=== PATIENT | male | born 1950 | race Caucasian/White ===

== ENCOUNTER 2018-06-09 15:42 | Outpatient (CLI) | payer MEDICARE, BC, SELFPAY ==
[2018-06-09 16:17] LABS: HCT 42.6 % (40.0-50.0); HGB 15.2 g/dL (13.5-17.5); Mean Corp. HGB Concentration 35.7 g/dL (32.0-36.0); Mean Corpuscular Hemoglobin 32.7 pg (27.0-33.0); Mean Corpuscular Volume 91.6 fL (80-95); Mean Platelet Volume 10.7 fL (8.0-11.0); Platelet Count 201 x1000/uL (130-400); RBC 4.65 m/cumm (4.50-6.00); RBC Distribution Width 13.9 % (11.8-14.1); White Blood Cell Count 6.19 k/cumm (4.4-10.8)
[2018-06-09 17:35] LABS: TSH (W/Ref FT4) 2.88 uIU/mL (0.358-3.74)
== END 2018-06-09 15:43 ==
PROVIDERS: PCP Internal Medicine; Visit Provider Internal Medicine
DX: R06.02 Shortness of breath (principal); R53.83 Other fatigue; I10 Essential (primary) hypertension
CPT/HCPCS: 36415; 85027; 84443

== ENCOUNTER 2018-06-27 16:04 | Outpatient (CLI) | payer MEDICARE, BC, SELFPAY ==
[2018-06-27 18:41] LABS: Anion Gap 8.6 mmol/L (3-11); BUN 18 mg/dL (7-18); CO2 27.4 mmol/L (21.0-32.0); CREATININE 1.13 mg/dL (0.70-1.30); Calcium 9.1 mg/dL (8.5-10.1); Chloride 103 mmol/L (98-107); Glucose 82 mg/dL (70-100); Potassium 4.1 mmol/L (3.5-5.1); Sodium 139 mmol/L (136-145)
== END 2018-06-27 16:24 ==
PROVIDERS: PCP Internal Medicine; Visit Provider Internal Medicine
DX: I10 Essential (primary) hypertension (principal)
CPT/HCPCS: 36415; 80048

== ENCOUNTER 2019-09-25 10:32 | Outpatient (REF) | payer MEDICARE, BC, SELFPAY ==
[2019-09-25 21:55] LABS: HCT 43.9 % (40.0-50.0); HGB 14.8 g/dL (13.5-17.5); Mean Corp. HGB Concentration 33.7 g/dL (32.0-36.0); Mean Platelet Volume 10.6 fL (8.0-11.0); Platelet Count 232 x1000/uL (130-400); RBC 4.93 m/cumm (4.50-6.00); RBC Distribution Width 13.4 % (11.8-14.1); White Blood Cell Count 4.49 k/cumm (4.4-10.8)
[2019-09-25 22:50] LABS: BUN 21 mg/dL (7-18); CREATININE 1.22 mg/dL (0.70-1.30); Calcium 9.3 mg/dL (8.5-10.1); Chloride 106 mmol/L (98-107); Estimated GFR 59.07 (mL/min/1.73m2); Glucose 100 mg/dL (74-106); Potassium 4.2 mmol/L (3.5-5.1); Sodium 144 mmol/L (136-145); Vitamin B12 552 pg/mL (193-986)
[2019-09-25 23:08] LABS: FREE T4 1.07 ng/dL (0.76-1.46)
== END 2019-09-25 10:52 ==
LOC: NCHCN 10:32
PROVIDERS: PCP Internal Medicine; Visit Provider Internal Medicine
DX: I10 Essential (primary) hypertension (principal); F41.8 Other specified anxiety disorders; E03.9 Hypothyroidism, unspecified; R41.3 Other amnesia; K21.9 Gastro-esophageal reflux disease without esophagitis; R06.02 Shortness of breath
CPT/HCPCS: 80048; 85027; 82607; 84439; 84443

== ENCOUNTER 2020-09-01 05:55 | Outpatient (REF) | payer MEDICARE, BC, SELFPAY ==
[2020-09-04 12:16] LABS: Patient Race White; SARS-CoV-2 RNA Undetected (Undetected); SARS-CoV-2 Specimen Source Nasal
== END 2020-09-01 06:15 ==
LOC: NCHCN 05:55
PROVIDERS: PCP Internal Medicine; Visit Provider Nurse Practitioner Family
DX: Z11.59 Encounter for screening for other viral diseases (principal)
CPT/HCPCS: U0003

== ENCOUNTER 2020-09-22 19:21 | Outpatient (REF) | payer MEDICARE, BC, SELFPAY ==
[2020-09-22 21:23] LABS: HCT 41.5 % (40.0-50.0); HGB 13.2 g/dL (13.5-17.5); MCH 25.9 pg (27.0-33.0); MCHC 31.8 % (32.0-36.0); MCV 81.4 fL (80-95); MPV 10.5 fL (8.0-11.0); Platelet Count 282 10^3/uL (130-400); RDW 15.1 % (11.8-14.1); RDW-SD 44.5 fL; WBC 4.96 10^3/uL (4.4-10.8)
[2020-09-22 22:02] LABS: Anion Gap 10.5 mmol/L (3-11); BUN 27 mg/dL (7-18); CO2 25.5 mmol/L (21.0-32.0); CREATININE 1.43 mg/dL (0.70-1.30); Calcium 9.5 mg/dL (8.5-10.1); Chloride 104 mmol/L (98-107); Estimated GFR 49.03 (mL/min/1.73m2); Glucose 113 mg/dL (74-106); NT-proBNP 32 pg/mL (<300); Potassium 4.1 mmol/L (3.5-5.1); Sodium 140 mmol/L (136-145)
[2020-09-23 09:42] LABS: Iron 43 ug/dL (65-175); Total Iron Binding Capacity 337 ug/dL (250-450); Transferrin Sat 13 % (20-55)
== END 2020-09-22 19:41 ==
LOC: NCHCN 19:21
PROVIDERS: PCP Internal Medicine; Visit Provider Internal Medicine
DX: D50.9 Iron deficiency anemia, unspecified (principal); R06.09 Other forms of dyspnea; I10 Essential (primary) hypertension
CPT/HCPCS: 80048; 85027; 83540; 83550; 83880

== ENCOUNTER → 2020-12-04 08:33 | Outpatient (BNVA) | payer MEDICARE, BC, SELFPAY | PROVIDERS: PCP Internal Medicine; Referring Provider Internal Medicine; Visit Provider Physical Therapy Assistant | DX: Z12.11 Encounter for screening for malignant neoplasm of colon (principal); Z86.010 Personal history of colon polyps ==

== ENCOUNTER 2020-12-12 09:17 | Day surgery (SDC) | payer MEDICARE, BC, SELFPAY ==
[2020-12-12 09:39] VITALS: BP 125/88; PULSE 96; RESP 18; TEMP 36.1; O2SAT 93
[2020-12-12] MEDS: Lactated Ringers 1,000 ML 80 ML IV (09:59)
--- NOTE | 2020-12-12 10:30 | BOWEL_PTH ---
PATIENT: Scout Donohue LOC: [facility] U#:[id number] AGE/SX: 70/M ROOM: RE12/12/[address]: Niharika Alexander : 1950 BED: DIS: 12/12/2020 SPEC #: [id number] RECD: 12/12/20 12:51 STATUS: WILVER RE #: [id number] HUNTER: 12/12/20 10:[address]: Niharika Alexander DEPT: Surgical Specimen RECD BY: Rosemarie Morfin ENTERED: 12/12/20 12:53 SP TYPE: Bowel OTHR DR: Nic Hutton Tissues: 1 - BIOPSY BOWEL 2 - BIOPSY BOWEL 3 - BIOPSY BOWEL 4 - BIOPSY BOWEL 5 - BIOPSY BOWEL Procedures: GROSS AND MICRO LEVEL 4 Comments: [id number]
[2020-12-12] MEDS: AMPICILLIN SODIUM 2 GM in Normal Saline 100 ML IVPB (10:33)
--- NOTE | 2020-12-12 11:38 | W.COLOREPORT ---
Date of service: 12/12/20 Time of Service: 11:38 Colonoscopy Report Date of procedure: 12/12/20 Pre-op diagnosis general: A. polyps Post-op diagnosis procedure note: other (A. polyps and diverticula) Surgeon: Niharika Alexander Anesthesia proc note operative: GETA Estimated blood loss (mL): 3 Pathology: other Complications: None Disposition: PACU Prep: Miralax/Dulcolax Retraction Time: 45 mins Procedure Description: After informed consent was obtained the patient was taken to the procedure room and placed in a left decubitous position. Monitors were applied and a time out was done. The patients name, date of , procedure, allergies to medications and metal in their body was reviewed. The patient was then sedated. Once sedated and comfortable a rectal exam was done. External exam was normal. Internal exam revealed a normal sphincter tone and no palpable masses. The scope was then introduced and retrofelexed. No internal hemorrhoids were identified. The scope was then advanced to the w/out cecum difficulty. Patient's colon was very tortuous. We had to reposition him on his back. Abdominal pressure was used. The TI and appendiceal orifice were identified. The prep was adequate. The scope was then slowly retracted over 45 minutes back into the rectum. Patient had 7 polyps removed. 3 of these were 1 cm pedunculated polyps. They were not ulcerated. These were removed with hot polypectomy snare. Theere were at 60,50,& 30cm. He had 4 other polyps that were removed with a hot polypectomy forcep. 1 of these was 0.75 cm excised at 30 cm. The rest were less than 5 mm in size. These were are flat and are removed with a hot polypectomy forcep. 1 in the rectum. 1 at 30 cm. One at 70 cm. And 1 at 60 cm. All specimens are retrieved and no bleeding is noted. He does have moderate diverticular disease confined to the sigmoid colon. There are no signs of active bleeding or infection. All specimens are retrieved and no bleeding is noted. He should have a repeat colonoscopy in 3 years time, IF he is healthy still for anesthesia. The scope was removed. The patient tolerated procedure well without any complications. The patient was woken up and taken back to Same day surgery in stable condition. 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 The patient tolerated the procedure well and there were no immediate complications. Follow up: The patient should follow up in 3 years unless they develop changes in bowel habits or other new gastrointestinal complaints.
--- NOTE | 2020-12-12 11:39 | W.PM.DSUDISC ---
Discharge Plan Disposition Patient Disposition: HOME Condition: Good Discharge Details Reason For Visit: colon Attending Provider: Niharika Alexander Primary Care Provider: Nic Hutton Home Meds and New Rx's Prescriptions: Continued ferrous sulfate 325 mg (65 mg iron) tablet 325 mg PO DAILY RF: 0 bisacodyl [Dulcolax (bisacodyl)] 5 mg tablet,delayed release (DR/EC) 5 mg PO ONCE Qty: 4 RF: 0 losartan 50 MG tablet 50 mg PO DAILY RF: 0 omeprazole 20 MG capsule,delayed release(DR/EC) 20 mg PO DAILY RF: 0 hydrochlorothiazide 25 mg tablet 25 mg PO DAILY RF: 0 acetaminophen [Tylenol Extra Strength] 500 mg tablet 500 mg PO Q6H PRNRF: 0 Discontinued polyethylene glycol 3350 17 gram/dose powder 238 g PO ONCE Qty: 238 RF: 0 aspirin 81 mg tablet,delayed release (DR/EC) 81 mg PO DAILY RF: 0 Discharge Instructions Additional Instructions: Findings: x7 polyps removed. diverticula Follow up: After we will send a letter in 3 weeks with the results of pathology. Repeat scope in 3 years time-due to the size and number of polyps, provided you are still healthy for anesthesia. -No aspirin or NSAIDs for 14 days. After 14 days resume aspirin. -No lifting over 20 pounds or strenuous activity x72 hours. Please call if you develop: fevers >101.5 Nausea or Vomiting Abdominal pain that is not transient DAY SURGERY UNIT POST COLONOSCOPY INSTRUCTIONS 1. Because there will be medication in your system for the next 24 hours, you may feel a little sleepy. Your coordination will be affected. Therefore: a. Do not drive or operate dangerous equipment for 24 hours. b. Do not drink alcohol beverages for 24 hours (not even beer). c. Plan to go home and rest for the day. 2. Generally there are no restrictions on your activity after a day or so has gone by, but you may feel a bit fatigued for a few days. 3 After you arrive home you may have a light meal and return to a normal diet as you can tolerate it without feeling sick to your stomach. 4. After surgery, you may feel pain or discomfort. This should be only transient, but if it persists please contact your doctor. 5. If there are any questions regarding the findings of your procedure, please feel free to contact your doctor. 6. If you are unable to contact your doctor with a problem, contact the hospital at [phone]. 7. Continue all your regular medications unless directed otherwise. I understand the above instructions and have no questions. Signature of Patient or Responsible Adult Escort Date/Time Name of Responsible Adult Escort Signature of Nurse Date/Time DIVERTICULAR DISEASE OVERVIEW ? A diverticulum is a pouch-like structure that can form through points of weakness in the muscular wall of the colon (ie, at points where blood vessels pass through the wall). Diverticulosis affects men and women equally. The risk of diverticular disease increases with age. It occurs throughout the world but is seen more commonly in developed countries. WHAT IS DIVERTICULAR DISEASE? Diverticulosis ? Diverticulosis merely describes the presence of diverticula. Diverticulosis is often found during a test done for other reasons, such as flexible sigmoidoscopy, colonoscopy, or barium enema. Most people with diverticulosis have no symptoms and will remain symptom free for the rest of their lives. A person with diverticulosis may have diverticulitis, or diverticular bleeding. Diverticulitis ? Inflammation of a diverticulum (diverticulitis) occurs when there is thinning and breakdown of the diverticular wall. This may be caused by increased pressure within the colon or by hardened particles of stool, which can become lodged within the diverticulum. The symptoms of diverticulitis depend upon the degree of inflammation present. The most common symptom is pain in the left lower abdomen. Other symptoms can include nausea and vomiting, constipation, diarrhea, and urinary symptoms such as pain or burning when urinating or the frequent need to urinate. Diverticulitis is divided into simple and complicated forms. ?Simple diverticulitis, which accounts for 75 percent of cases, is not associated with complications and typically responds to medical treatment without surgery. ?Complicated diverticulitis occurs in 25 percent of cases and usually requires surgery. Complications associated with diverticulitis can include the following: ?Abscess ? a localized collection of pus ?Fistula ? an abnormal tract between two areas that are not normally connected (eg, bowel and bladder) ?Obstruction ? a blockage of the colon ?Peritonitis ? infection involving the space around the abdominal organ ?Sepsis ? overwhelming body-wide infection that can lead to failure of multiple organs Diverticular bleeding ? Diverticular bleeding occurs when a small artery located within a diverticulum is eroded and bleeds into the colon. Diverticular bleeding usually causes painless bleeding from the rectum. In approximately 50 percent of cases, the person will see maroon or bright red blood with bowel movements. Is bleeding with a bowel movement normal? ? It is not normal to see blood in a bowel movement; this can be a sign of several conditions, most of which are not serious (eg, hemorrhoids) but some of which are serious and require immediate treatment. Anyone who sees blood after a bowel movement should consult with their healthcare provider to determine if further testing or evaluation is needed. DIVERTICULOSIS AND DIVERTICULITIS DIAGNOSIS ? Diverticulosis is often found during tests performed for other reasons. ?Barium enema ? This is an x-ray study that uses barium in an enema to view the outline of the lower intestinal tract. This is an older test and has been largely replaced by computed tomography (CT) scan. ?Flexible sigmoidoscopy ? This is an examination of the inside of the sigmoid colon with a thin, flexible tube that contains a camera. ?Colonoscopy ? This is an examination of the inside of the entire colon. ?CT scan ? A CT scan is often used to diagnose diverticulitis and its complications. If diverticulitis (not just diverticulosis) is suspected, the above three tests should not be used because of the risk of perforation. TREATMENT Diverticulosis ? People with diverticulosis who do not have symptoms do not require treatment. However, most clinicians recommend increasing fiber in the diet, which can help to bulk the stools and possibly prevent the development of new diverticula, diverticulitis, or diverticular bleeding. Fiber is not proven to prevent these conditions in all patients but may help to control recurrent episodes in some. Increase fiber ? Fruits and vegetables are a good source of fiber. Fiber content of packaged foods can be calculated by reading the nutrition label. Seeds and nuts ? Patients with diverticular disease have historically been advised to avoid whole pieces of fiber (such as seeds, corn, and nuts) because of concern that these foods could cause an episode of diverticulitis. However, this belief is completely unproven. We do not suggest that patients with diverticulosis avoid seeds, corn, or nuts. Diverticulitis ? Treatment of diverticulitis depends upon how severe your symptoms are. Home treatment ? If you have mild symptoms of diverticulitis (mild abdominal pain, usually left lower abdomen), you can be treated at home with a clear liquid diet and oral antibiotics. However, if you develop one or more of the following signs or symptoms, you should seek immediate medical attention: ?Temperature >100.1?F (38?C) ?Worsening or severe abdominal pain ?An inability to tolerate fluids Hospital treatment ? If you have moderate to severe symptoms, you may be hospitalized for treatment. During this time, you are not allowed to eat or drink; antibiotics and fluids are given into a vein. If you develop an abscess of the colon, you may require drainage of the abscess (usually performed by placing a drainage tube across the abdominal wall) or by surgically opening the affected area. Surgery ? If you develop a generalized infection in the abdomen (peritonitis), you will usually require an emergency operation. A two-part operation may be necessary in some cases. ?The first operation involves removal of the diseased colon and creation of a colostomy. A colostomy is an opening between the colon and the skin, where a bag is attached to collect waste from the intestine. The lower end of the colon is temporarily sewed closed to allow it to heal. ?Approximately three to six months later, a second operation is performed to reconnect the two parts of the colon and close the opening in the skin. You are then able to empty your bowels through the rectum. Sometimes patients require up to a year to recover from the first operation, depending on how sick they were. In non-emergency situations, the diseased area of the colon can be removed and the two ends of the colon can be reconnected in one operation, without the need for a colostomy. Surgery versus medical therapy ? An operation to remove the diseased area of the colon may be necessary if you do not improve with medical therapy. After an episode of uncomplicated diverticulitis, elective surgery is generally not required as the risk of another attack or requiring emergency surgery is low. However, patients with persistent symptoms attributable to diverticulitis, a history of complicated diverticulitis, or a compromised immune system should be evaluated for possible surgery to prevent another attack. In such patients, another attack has been associated with a higher risk of complications or . Of course, the decision will also depend in part upon your other medical conditions and ability to undergo surgery. In many cases, an elective operation can be performed laparoscopically, using small incisions, rather than the typical vertical (up and down) abdominal incision. Laparoscopic surgery usually allows you to recover more quickly and shortens the hospital stay. After diverticulitis resolves ? After an episode of diverticulitis resolves, if you have not had a recent colonoscopy, the entire length of the colon should be evaluated to determine the extent of disease and to rule out the presence of abnormal lesions such as polyps or cancer. Recommended tests include colonoscopy, barium enema and sigmoidoscopy, or CT colonography. Diverticular bleeding ? Most cases of diverticular bleeding resolve on their own. However, some people will need further testing or treatment to stop bleeding, which may include a colonoscopy, angiography (a treatment that blocks off the bleeding artery), bleeding scan, or surgery. DIVERTICULAR DISEASE PROGNOSIS Diverticulosis ? Over time, diverticulosis may cause no problems or it may cause episodes of bleeding and/or diverticulitis. Approximately 15 to 25 percent of people with diverticulosis will develop diverticulitis, while 5 to 15 percent will develop diverticular bleeding. Diverticulitis ? Approximately 85 percent of people with uncomplicated diverticulitis will respond to medical treatment, while approximately 15 percent of patients will need an operation. After successful treatment for a first attack of diverticulitis, one-third of patients will remain asymptomatic, one-third will have episodic cramps without diverticulitis, and one-third will go on to have a second attack of diverticulitis. The prognosis tends to remain similar following a second attack of diverticulitis. Only 10 percent of people remain symptom-free after a second attack. Subsequent attacks tend to be of similar severity, not increasing in severity as previously believed. High Fiber Diet What is Dietary Fiber? All fiber comes from plants, bushes, jeannette or trees. Of course, the ones that we eat provide us with fruits, vegetables and grains. There are many different types of fiber but the three that are most important to the health of the body are: Insoluble Fiber This fiber does not dissolve in water, nor is it fermented by the bacteria residing in the colon. Rather, it retains water and in so doing, helps to promote a larger, bulkier and more regular bowel activity. This, in turn, may be important in preventing disorder such as diverticulosis and hemorrhoids, and in sweeping out certain toxins and cancer causing carcinogens. Sources of insoluble fiber are: ? whole grain wheat and other whole grains ? corn bran, including popcorn, unflavored and unsweetened ? nuts and seeds ? potatoes and the skins from most fruits from trees such as apples, bananas and avocados ? many green vegetables such as green beans, zucchini, celery and cauliflower ? some fruit plants such as tomatoes and kiwi Soluble Fiber These fibers are fermented or used by the colon bacteria as a food source or nourishment. When these good bacteria grow and thrive, many health benefits occur in both the colon and the body. Soluble fiber is present in some degree in most edible plant foods, but the ones with the most soluble fiber include: ? legumes such as peas and most beans, including soybeans ? oats, rye and barley ? many fruits such as berries, plums, apples bananas and pears ? certain vegetables such as broccoli and carrots ? most root vegetables ? psyllium husk supplement products Prebiotic Soluble Fiber These are relatively newly discovered soluble plant fibers. The technical name for this fiber is inulin or fructan. When these soluble fibers are fermented by the good colon bacteria, some further significant health benefits have been shown to occur by research in many medical centers. These soluble prebiotic fibers occur in significant amounts in: ? asparagus ? yams ? onions ? garlic ? bananas ? leeks ? agave ? chicory and other root vegetables such as [place] artichokes ? wheat, rye and barley (smaller amounts) Benefits of a High Fiber Diet The health benefits of a high fiber diet, consumed on a regular basis and reaching recommended amounts (below), are now fairly well-defined. There are some additional benefits in the early research stage with the prebiotic soluble fibers. What is now known regarding a high fiber diet include: Bowel Regularity A high fiber diet promotes regularity with a softer, bulkier and regular stool pattern. This decreases the chance of hemorrhoids, diverticulosis and perhaps colon cancer. Cholesterol and Reduced Triglycerides The soluble fibers are the ones that will reduce cholesterol levels when used on a regular basis. Psyllium husk and prebiotic soluble fiber will also reduce cholesterol. They may also reduce the incidence of coronary heart disease. Oats, flax seeds and legumes or beans are the recommended fibers. Colon Polyps and Cancer It is still not certain if a high fiber diet helps prevent colon cancer. Considerable research suggests that this may occur. Certainly it makes sense to increase regularity and so speed the movement of cancer causing carcinogens through the bowel. In addition, reducing a heavy meat diet reduces the bile flow from the liver in a favorable way. This, too, reduces the amount of carcinogens that reach and are manufactured in the colon. Finally, a high fiber diet, including prebiotic soluble fiber, increases the integrity and health of the wall of the colon. The risk of cancer may be reduced. Colon Wall Integrity A high fiber diet changes the bacterial makeup of the colon toward a more favorable balance. For instance, it is known that those people with obesity, diabetes type 2 and inflammatory bowel disease have a predominance of bad bacteria in the colon. This, in turn, may render the bowel wall weak and allow bacteria and, indeed, even toxins to seep through. A high fiber diet with a modest reduction in animal and meat products may return the bacterial makeup to a more positive balance. This, in particular, has been seen when the soluble fiber prebiotics are added to the diet. Blood Sugar Soluble fiber such as in legumes (beans), oats and in prebiotic fibers slows the absorption of blood sugar and so helps regulate the sugar in the blood. Insoluble fiber on a regular basis is associated with reduced risk of type 2 diabetes. Weight Loss High fiber diets are more filling and give a sense of fullness sooner than an animal and meat based diet does. In addition, the soluble prebiotic fibers have been shown to turn off the hunger hormones produced in the wall of the gut and to increase the hormones that give a sense of fullness. Those hormones are made in the wall of the gut. New medical research has shown that the bacterial makeup in the colon in overweight people is abnormal to the extent that they manufacture and absorb almost twice the number of calories through the colon wall as do normals. Prebiotic fibers (below) will help change this hormonal balancein a favorable way. Bacteria and the Function of the Colon The colon finishes the digestive process. Hopefully, the waste products move through in a nice regular manner. Insoluble fibers help this process by retaining water and so producing a bulkier, softer stool, which is easy to pass. The additional role of the colon is to provide a home for an enormous number of micro-organisms, mostly bacteria. Recent research has shown that there are over 1,000 species of bacteria with a total bacterial count ten times the number of cells in the body. These bacteria play a major role in keeping the colon wall itself healthy. In addition, these good bacteria produce a very strong immune system for the body. They significantly increase calcium absorption and bone density. They provide other documented benefits. It is the soluble fibers in the diet that are so effective in stimulating the growth of good colon bacteria. How Much is Enough? The amount of fiber in food is measured in grams. National nutritional authorities recommend the following amounts of dietary fiber daily. Under Age 50 Over Age 50 Men 38 grams 30 grams Women 25 grams 21 grams For a week or so, it is best to tally the amount of fiber you are consuming. Boxed and packaged foods will have the amount of fiber per serving on the nutrition label. Which Fibers and Which Foods are Best? As noted, healthy fiber is only found in plants. The three major categories are whole grains, fruits and vegetables. Whole Grains Wheat, oats, barley, wild or brown rice, amaranth, buckwheat, bulgur, corn, millet, quinoa, rye, sorghum, teff and triticals. By far, wheat, oats and wild or brown rice are most common. Always buy whole grain products. White bread, baked goods and rolls almost always are made from wheat flour. Wheat flour is white because most of the fiber, vitamins and other nutrients have been removed. Try not buy enriched grains. What this means is that simple white flour has had vitamins added to it by the english language learner tutor. The word, enriched, implies a good and healthy product. On the contrary, enriched means that most of the fiber has been removed and a few vitamins added. Fruits Fruits come from trees such as apple and pear or from bushes or jeannette. You should eat a wide variety of fruits, preferably with every meal. In many cases, the skin of a fruit such as apple will contain much of the insoluble fiber while the pulp contains most of the soluble fiber. To the extent possible, buy organic fruits as these will have little or no pesticides. Always wash fruit. Vegetables Eat a wide variety of vegetables. They should be a mainstay of lunch and dinners. Frozen vegetables retain as much nutrition and fiber as fresh vegetables. As with fruit, try to buy organic to reduce any residual pesticide ingestion. Wash fresh vegetables thoroughly. Cruciferous vegetables such as broccoli, [place] sprouts and cauliflower contain certain chemicals such as sulforaphane. This substance has very strong anti-cancer properties and should be eaten frequently. Legumes, Beans, Peas and Soybeans These vegetables have plenty of soluble fiber and should be part of a varied vegetable intake. Beans, in particular, contain a certain type of fiber that may lead to harmless gas or bloating. Nuts and Seeds These are rich sources of fiber and are a good substitute for sweets such as candies and baked sweet goods. While nuts and seeds are rich in fiber, they also contain vegetable fat and so can and do add calories. Read the Labels As noted, fresh and frozen foods are usually better. They have good nutrition and few, if any, chemicals added to them. When buying packaged foods and, in particular grains, look for three things: ? The first word on the label should be whole, such as whole wheat or whole grain. ? Check out the calories and the amount of fiber in a serving. ? How many and what other additives or chemicals are added. Fewer is always better. Do you know what each additive does? Some are added not for the benefit of the ore bridge operator but rather for manufacturers. These could and do include sugar, artificial flavor, chemicals to prevent oxidation and spoilage, emulsifiers to blend the product. You have to be a railroad detective. Fiber Facts, Nuggets and Pearls ? For breakfast you can easily get the day started well by using a high fiber, whole grain cereal. Check the labels. Add fruit such as blueberries and bananas. If you are an egg eater, use whole wheat or grain toast. Adding wheat germ gives you a good fiber kick. ? Always use whole grain or wheat with rolls and sandwiches. Does your fast food store not have them? Perhaps you look elsewhere. Eating an occasional black [place] or veggie burger provides variety. ? Snacks should consist of fruit and/or nuts. While nuts are loaded with fiber, they are an energy rich food, meaning they have a lot of calories in a small packet. ? Fruit juices should contain pulp. Clear juices such as clear orange, pear or apple juice contain little fiber and have a lot of fructose. Prune juice is usually high in fiber. ? Homemade soups ? adding fresh or frozen vegetables to a chicken or vegetable stock is a good way to start homemade soup. ? Salads ? adding cooked and then chilled vegetables provide great flavoring to almost any salad. Remember, a hernandez salad has lots of cooked corn in it. Small slices of apples or oranges and nuts such as chopped walnuts or sliced almonds always adds taste, variety and fiber to almost any salad. ? Fruit ? Try to eat fruit of some type with almost every meal. ? Rethink how you place the various foods on your dinner plate. Reducing the portions of the meat or animal food portion to the side with equal or more portions of vegetables, legumes and fruits portion always allows for more fiber. There was never anything magic about making the meat or animal food portion the main part of the dinner plate. Eating from smaller plates can, over time, trick your mind and terminal make up operator habit of using a dinner plate. Again, there is nothing magic in an 11, 12, or 13 inch dinner plate. Fiber Supplements There are a variety of fiber supplements available on the food or pharmacy shelves. Psyllium This soluble plant fiber has been used in [place] for over 2,000 years. It is a soluble fiber with mucilage in it. This acts to retain a lot of water and also is fermented by colon bacteria. When 7 grams a day are used, it does lower cholesterol. Metamucil in various forms is psyllium. Methyl Cellulose All the cellulose products come from finely ground wood chips which are then treated in a variety of ways such as boiling in acids. Methyl cellulose is an insoluble fiber which does dissolve in water. It is also an emulsifier, meaning it blends oils and water. Citrucel is methyl cellulose (MC). MC may not be appropriate for Crohn?s disease or ulcerative colitis as several medical studies have shown that certain emulsifiers dissolve the mucous lining of the colon in animals prone to Crohn?s disease. This then allows bacteria to invade the underlying tissue. Inulin Inulin is a soluble prebiotic fiber found in many foods and which are fermented mostly in the left side of the colon. It is available in a supplement as generic inulin and in Fiber Choice. Oligofructose FOS These are also prebiotic fibers. They are fermented very quickly in the right side of the colon. Prebiotin This product is a combination of oligofructose, which feeds the bacteria in the right side of the colon and inulin, which does the same in the left side of the colon. There seems to be a benefit for this particular formula based on medical research. Prebiotic Soluble Fiber These may be the healthiest of all the soluble fibers. They grow in many plants and have had a great deal of research done on them in the last 10-15 years. These fibers are found in asparagus, yams and other root vegetables such as chicory, garlic, onion, leeks and in smaller amounts in wheat. This research has shown the following: ? Increase in good and decrease in bad colon bacteria ? Increase calcium absorption and enhanced bone mass ? Enhanced immune system ? Appetite and weight control by changing the hormone appetite signals to the brain ? May decrease colon cancer incidence ? Reduce or correct a leaky colon Eating a wide variety of plant food up to the recommended amount will likely give you enough prebiotic fiber. Supplements such as Prebiotin can be added to the diet. Short Chain Fatty Acids (SCFA) Some rather remarkable research findings have shown that one of the benefits of ingesting a lot of soluble fiber, in particular the prebiotic ones, results in larger amounts of SCFAs in the colon. These SCFAs are made by the good bacteria in the colon such as Bifidobacter and Lactobacillus. These small molecules have been shown to do the following: ? Enhance the health and integrity of the colon wall ? Provide nourishment for the cells that actually line the colon ? Increases the acidity of the colon which is a very real health benefit ? Stabilize blood sugar for diabetics ? Reduce blood cholesterol and triglyceride ? Significantly enhance immunity ? May be a benefit for Crohn?s disease and ulcerative colitis patients Fiber and Gas Everyone has intestinal gas and that is a good thing. It means that bacteria, hopefully the good ones, are thriving. The normal amount of flatus passed each day depends on sex and what is eaten. The normal number of flatus is 10-20 times a day. When the bacteria that make intestinal gases are growing, it also means that other good bacteria are using the same fibers to grow and produce multiple health benefits, including the production of healthy short-chain fatty acids. These substances are produced quietly in the colon and produce many health-related outcomes. Soluble fiber should always be used in a gradual manner. If too much is consumed at any one time, then excess, but harmless, intestinal gas can occur. People with irritable bowel syndrome are particularly prone to bloating and mild cramping. In this instance, soluble fiber in the diet or supplement should be used in small doses and increased gradually. Finally, prebiotic fibers tend to cause the production of short-chain fatty acids which acidify the colon. This, in turn, reduces or stops the growth of bacteria that make the smelly hydrogen sulfide gases that produce noxious flatus. People who consume many vegetables with prebiotics or take a prebiotic fiber supplement often have non-odoriferous flatus. Fiber and Irritable Bowel Syndrome Irritable bowel syndrome (IBS) is one of the most common disorders of the lower digestive tract. The symptoms of IBS can be quite varied. They can be a mix of several symptoms such as constipation, diarrhea, crampy abdominal discomfort, bloating and gas. An attack of IBS can be triggered by emotional tension and anxiety, poor dietary habits and certain medications. It is now known that infections in the intestine can lead to long-term IBS symptoms. Increased amounts of fiber in the diet can help relieve the symptoms of irritable bowel syndrome by producing soft, bulky stools. This helps to normalize the time it takes for the stool to pass through the colon. Recent medical research with newer techniques has shown some surprising and dramatic findings for IBS patients. Specifically, there is a very significant and abnormal shift of bacteria from those that provide health benefits to those bad bacteria that we really do not want in the gut. The technical name for this bad group of bacteria is called Firmicutes. Along with this abnormal bacterial collection, there is a smoldering low-grade inflammation in the gut wall that may contribute to symptoms. The goal for IBS patients should be to gradually increase the soluble dietary fibers in the diet so as to promote the growth of good bacteria and so suppress the bad ones along with the associated inflammation. IBS patients need to be careful of the amount of soluble fiber they consume. The reason for this is that, while the good colon bacteria thrive on these fibers and produce health benefits, other gas-forming bacteria may generate excessive but harmless gas and subsequent bloating. Thus, soluble plant fibers or a dietary prebiotic supplement should be taken in small initial doses and then gradually increased to tolerance. Fiber and Colon Polyps/Cancer Colon cancer is a major health problem. This disease is most common in Western cultures. It is not seen very often in rural cultures where the diet is mostly plant based. Usually, colon cancer starts out as a colon polyp, a benign mushroom-shaped growth. In time it grows, and in some people it becomes cancerous. Colon cancer is usually always curable if polyps are removed when found or if surgery is performed at an early stage. It is now known that people can inherit the risk of developing colon cancer, but diet is important, too. As noted, there is a very low rate of colon cancer in residents of countries where grains are unprocessed and retain their fiber. It seems that in the [place] world, cancer-containing agents (carcinogens) remain in contact with the colon wall for a longer time and in higher concentrations. So, a large bulky stool may act to dilute these carcinogens by moving them through the bowel more quickly. Less carcinogenic exposure to the colon may mean fewer colon polyps and less cancer. A very current review of the entire world?s literature on the effect of fiber on colon polyps and cancer prevention has shown rather clearly that for every 10 grams of fiber added to the diet, there is a 10% reduction in incidence of colon cancer. So the recommended 30 gram fiber diet would result in a 30% less chance of getting these tumors. There are also substances produced in the colon by the good bacteria that seem to retard certain pre-cancer factors from developing. They are called short-chain fatty acids (SCFA). See above for description of SCFAs. A high fiber diet increases these substances. So, the combination of dietary fiber and the production of short-chain fatty acids have a clear health benefit. Fiber and Diverticulosis Prolonged, vigorous contraction of the colon over a long period of time may result in diverticulosis. This increased pressure causes small and, eventually, larger ballooning pockets to form. These pockets by themselves cause no problem. However, sometimes they become infected (diverticulitis) or even break open (perforate) causing infection or inflammation within the abdomen (peritonitis). A high fiber diet increases the bulk in the stool and thereby reduces the pressure within the colon. By so doing, the formation of pockets may be reduced or possibly even stopped. In the past, many physicians were fearful that seeds as in tomatoes, nuts or berries were harmful and could get inside these pockets and rattle around, causing damage. We now know that this has never been the case and that these foods contain lots of fiber and are actually beneficial for diverticulosis patients. Certain bulking agents such as psyllium are traditional types of bulk producing supplements. Psyllium is a soluble fiber. Combining it with insoluble fiber as in wheat bran or corn bran (no gluten) can enhance this bulking effect even more. A product containing a prebiotic, psyllium and wheat bran is probably a very good combination for bowel regularity. Prebiotin Regularity/Diverticulosis is one such product. Activity:: see above Diet:: Small light meals x24 hours. 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
[2020-12-12 12:27] VITALS: BP 117/75; PULSE 77; RESP 16; TEMP 36.3; O2SAT 94
== END 2020-12-12 13:00 | disposition home or self-care (01) ==
PROVIDERS: PCP Internal Medicine; Visit Provider Surgery
PROC: 0DJD8ZZ Inspection of Lower Intestinal Tract, Via Natural or Artificial Opening Endoscopic (ICD-10-PCS; CPT 45378; principal; 2020-12-12 09:45)
DX: Z12.11 Encounter for screening for malignant neoplasm of colon (principal); Z86.010 Personal history of colon polyps; D12.4 Benign neoplasm of descending colon; D12.5 Benign neoplasm of sigmoid colon; K62.1 Rectal polyp; I10 Essential (primary) hypertension; K21.9 Gastro-esophageal reflux disease without esophagitis; K57.30 Diverticulosis of large intestine without perforation or abscess without bleeding
CPT/HCPCS: 45384; 88305; J0290; J2001

== ENCOUNTER 2021-01-22 17:52 | Outpatient (REF) | payer MEDICARE, BC, SELFPAY ==
[2021-01-22 14:02] LABS: HGB 14.6 g/dL (13.5-17.5); MCH 28.9 pg (27.0-33.0); MCHC 33.2 % (32.0-36.0); MPV 10.6 fL (8.0-11.0); Platelet Count 211 10^3/uL (130-400); RBC 5.06 10^6/uL (4.36-5.78); RDW 14.9 % (11.8-14.1); RDW-SD 47.8 fL; Reticulocyte 1.9 % (0.5-2.4); WBC 4.79 10^3/uL (4.4-10.8)
[2021-01-22 14:17] LABS: Anion Gap 8.9 mmol/L (3-11); BUN 24 mg/dL (7-18); CO2 28.1 mmol/L (21.0-32.0); CREATININE 1.3 mg/dL (0.70-1.30); Calcium 9.2 mg/dL (8.5-10.1); Chloride 105 mmol/L (98-107); Estimated GFR 54.73 (mL/min/1.73m2); Glucose 101 mg/dL (74-106); Potassium 4.3 mmol/L (3.5-5.1); Sodium 142 mmol/L (136-145)
[2021-01-22 14:24] LABS: Iron 61 ug/dL (65-175); Total Iron Binding Capacity 308 ug/dL (250-450); Transferrin Sat 20 % (20-55)
== END 2021-01-22 17:53 | disposition home or self-care (01) ==
LOC: NCHCN 17:52
PROVIDERS: PCP Internal Medicine; Visit Provider Internal Medicine
DX: D50.9 Iron deficiency anemia, unspecified (principal); R13.13 Dysphagia, pharyngeal phase; R06.09 Other forms of dyspnea; R94.4 Abnormal results of kidney function studies; G47.30 Sleep apnea, unspecified
CPT/HCPCS: 80048; 85027; 83540; 83550; 85045

== ENCOUNTER 2021-01-26 02:03 | Outpatient (CLI) | payer MEDICARE, BC, SELFPAY ==
--- NOTE | 2021-01-26 09:45 | DI.RAD_ITS ---
EXAM: RF BARIUM SWALLOW CLINICAL HISTORY: PHARYNGEAL PHASE DYSPHAGIA,R13.13 TECHNIQUE: 2D and realtime digital imaging was performed. CONTRAST MATERIAL: Oral barium Oral water soluble contrast was administered. COMPARISON: CR ABD FLAT UPRIGHT PA CHEST from 08/02/2012 FINDINGS: CHEST X-RAY: The heart and pulmonary vasculature are within normal limits. The lungs are clear. No pl eural effusion or pneumothorax is present. There has been previous sternotomy and is a prosthetic aor tic valve which is better seen during fluoroscopy than on carrier blower. ESOPHAGRAM: This was performed both standing and recumbent using both single and air contrast techniq ue. There was no aspiration but there did appear to be mild residue in the valleculae. No evidence of Ze nker's diverticulum but there is a consistently present hypertense upper esophageal sphincter noted. Inferiorly there is an inconsistent small sliding-type hiatal hernia. No obvious fixed lesion. No d iverticuli in the esophagus. No obvious Schatzki ring demonstrated. No posterior column indentation to suggest the presence of aberrant right subclavian artery. No prominent reflux demonstrated. IMPRESSION: Small inconsistent sliding-type hiatal hernia. No obvious reflux demonstrated. No fixed lesions see n in the esophagus but there is a hypertense upper esophageal sphincter-cricopharyngeus noted. There is evidence of previous sternotomy and prosthetic aortic valve. RADIATION DOSE DELIVERED: Total fluoroscopy time 1 minutes 37 seconds Cumulative dose 4.15 mGy
[2021-01-26] MEDS: Barium Sulfate 60% W/V 355 ML BTL PO (09:49)
[2021-01-26] MEDS: Simethicone/Sod Bicarb/Cit Ac, 4 gram PACKET 1 PACKET PO (09:51)
== END 2021-01-26 02:23 ==
PROVIDERS: PCP Internal Medicine; Visit Provider Internal Medicine
DX: K44.9 Diaphragmatic hernia without obstruction or gangrene (principal); K22.8 Other specified diseases of esophagus; R13.13 Dysphagia, pharyngeal phase
CPT/HCPCS: 74221; J3490

== ENCOUNTER 2021-02-06 03:02 | Outpatient (CLI) | payer MEDICARE, BC, SELFPAY ==
--- NOTE | 2021-02-06 | DI.US_ITS ---
APPROVED REPORT EXAM: Comprehensive 2D, Doppler, and color-flow Echocardiogram Patient Location: Out-Patient [employer]: Lucrecia Taveras RDCS (AE) Indications: Dyspnea on exertion Other Information Study Quality: Fair. Technically limited study due to body habitus. Conclusion Moderate concentric left ventricular hypertrophy. Estimated ejection fraction is 60 to 65%. There a re no segmental wall motion abnormalities Normal right ventricular size and systolic function Both atria are normal in size There is a bioprosthetic aortic valve. Peak gradient is 18, mean 10 mmHg. There is no aortic regurg itation Mildly thickened mitral leaflets with trace regurgitation Normal tricuspid valve with trace regurgitation Normal pulmonic valve with trace regurgitation Dilated ascending aorta measuring 4.2 cm Wall motion Left Ventricle The left ventricle is normal size. The left ventricular systolic function is normal. The left ventric ular ejection fraction is within the normal range. Moderate concentric left ventricular hypertrophy. There is normal LV segmental wall motion. There is no ventricular septal defect visualized. LVEF is 6 0-65%. Right Ventricle Right ventricle is grossly normal in size. Right ventricular systolic function is grossly normal. Atria The left atrium size is normal. The right atrium size is normal. The interatrial septum is intact wit h no evidence for an atrial septal defect. Aortic Valve No hemodynamically significant valvular aortic stenosis. No aortic regurgitation is present. Bioprost hetic aortic valve is present. Mitral Valve Mitral valve leaflets are mildly thickened. No evidence of mitral valve stenosis. Trace mitral regurg itation. Tricuspid Valve The tricuspid valve is normal in structure. There is no tricuspid valve stenosis. Trace tricuspid reg urgitation. Unable to assess PA pressure. Pulmonic Valve The pulmonary valve is normal in structure. There is no pulmonic valvular stenosis. Trace pulmonic re gurgitation. Great Vessels The aortic root is normal in size. The ascending aorta isdilated, 4.2 cm Aortic arch is normal in alonso iber. IVC is normal in size and collapses >50% with inspiration. Pericardium There is no pericardial effusion. 2D Dimensions IVSD d PLAX 1.41 cm M: 0.6-1.2 LV Vol A2C d MOD 122.6 mL LVPW d PLAX 1.45 cm M: 0.6 - 1.2 LV Vol A4C d MOD 165.4 mL LVID d PLAX 4.22 cm M: 4.2 - 5.8 LA vol/ BSA A2C s A-L 28.8 mL/m2 LVDs 2.95 cm M: 2.5 - 4.0 LA vol/ BSA A4C s A-L 29.9 mL/m2 Ao Root d 3.47 cm M: 3.1 - 3.7 LA Vol/ BSA Biplane s A-L 31.1 mL/m2 Ao Asc Diam d 4.20 cm M: 2.6 - 3.4 LA Area A4C s MOD 21.25 cm2 LV EF Teichholz 57.1 % LA Area A2C s MOD 19.72 cm2 LVEF (Saravia's) 57.61 % M: 52 - 72 LV EF A4C MOD 56.6 % LV Volume 107.33 mL M: 62 - 150 LV EF A2C MOD 54.8 % LV Volume Index 47.49 mL/m2 M: 34 - 74 LV EF Biplane MOD 57.6 % LV Vol Biplane MOD 148.8 mL SV 85.71 mL FS 29.65 % SV Index 37.95 mL/m2 M-Mode TAPSE 1.59 cm (M/F) >1.7 LV Diastology MV E' medial 0.055 (>0.07 m/s) E/A Ratio 0.7 LV E/e MED 9.85 (<14) MV E Vmax 0.55 (0.4-1.3 m/s) MV E' lateral 0.081 (>0.1 m/s) MV A Vmax 0.75 (0.4-1.3 m/s) LV E/e LAT 6.70 (<14) MV E/A Ratio 0.72 MV E/E' medial 9.88 MV E/E' lateral 6.75 Aortic Valve LVOT Area 3.44 cm2 AoV Area Vmax 2.27 cm2 LVOT Vmax 1.41 m/s AoV Area/ BSA (Vmax) 1.00 cm2/m2 LVOT Mean Dom. 0.92 m/s NIC Mean Dom. 2.04 cm2 LVOT Peak Grad 7.9 mmHg NIC Mean Dom. Index 0.90 cm2/m2 LVOT Mean Grad 4.0 mmHg LVOT VTI 0.276 m LVOT Diam s 2.05 cm AoV Vmax 2.13 m/s Velocity Ratio 0.66 AoV Mean Dom. 1.54 m/s AoV Peak Grad 18.2 mmHg LVOT SV 94.84 mL AoV Mean Grad 10.4 mmHg AoV VTI 0.377 m AoV Area VTI 2.52 cm2 AoV Area/ BSA (VTI) 1.11 cm/m2 Mitral Valve MV DT 385 (160-240 msec) MV PHT 112 msec MV Area PHT 1.97 cm2 MV VTI 0.268 m MV VTI Annulus 0.278 m MV Area VTI 3.67 (4.0-6.0 cm2) Pulmonary Valve PV Vmax 1.04 (0.5-1.5 m/s) RVOT Peak Gr. 0.77 mmHg PV Peak Grad 4.4 mmHg RVOT Mean Gr. 0.40 mmHg PV Mean Grad 1.8 mmHg RVOT VTI 0.080 m PV VTI 0.146 m RVOT Vmax 0.44 m/s
== END 2021-02-06 03:22 ==
PROVIDERS: PCP Internal Medicine; Visit Provider Internal Medicine
DX: R06.09 Other forms of dyspnea (principal); Z95.3 Presence of xenogenic heart valve; I77.810 Thoracic aortic ectasia
CPT/HCPCS: 93306

== ENCOUNTER 2021-03-30 11:08 | Outpatient (REF) | payer MEDICARE, BC, SELFPAY ==
[2021-03-30 14:57] LABS: D-Dimer 1115 ng/mlFEU (<500)
== END 2021-03-30 11:09 | disposition home or self-care (01) ==
LOC: NCHCN 11:08
PROVIDERS: PCP Internal Medicine; Visit Provider Internal Medicine
DX: R22.41 Localized swelling, mass and lump, right lower limb (principal)
CPT/HCPCS: 85379

== ENCOUNTER 2021-03-30 15:59 | Outpatient (CLI) | payer MEDICARE, BC, SELFPAY ==
--- NOTE | 2021-03-30 | DI.US_ITS ---
Exam(s) US LOWER EXTREMITY VENOUS RT EXAM: US LOWER EXTREMITY VENOUS RT CLINICAL HISTORY: RT LEG SWELLING R22.41, POSITIVE D-DIMER. TECHNIQUE: Ultrasound performed using standard protocol. COMPARISON: US US ECHOCARDIOGRAM from 02/06/2021 FINDINGS: Duplex evaluation of the deep venous system of the right lower extremity was performed according to t usual protocol. Deep veins are freely compressible throughout, there is normal appearance on Dopp ler evaluation. Visualized saphenous system is unremarkable. IMPRESSION: No evidence of deep venous thrombosis of the right lower extremity. DATA REPOSITORY:
--- OUTSIDE RECORDS SUMMARY | 2021-03-30 16:04 | XMS_ITS ---
:1950 Author Care Team Providers Name Role Phone JERICHO CHAWLA MD Primary Care Provider [phone] [facility] REC[facility] OTHER [phone] Allergies Code Code System Name Reaction Severity Status Onset 19260 RxNorm Gabapentin ? ? Active ? Sulfa ? ? Active ? (Sulfonamide Antibiotics) 08686 RxNorm Vancomycin ? ? Active ? Medications Name Status Start Date Stop Date ? ? acetaminophen 500 mg tablet Active ? Not available Take 2 tablets every 4 hours by oral route. aspirin Active ? Not available 81 mg chewable 1 a day atorvastatin 20 mg tablet Active ? Not av ailable Take 1 tablet every day by oral route. Calcium 500 Active ? Not available 1 tab daily ferrous gluconate 324 mg (38 mg iron) tablet Completed ? 03/23/2021 Take 1 tablet twice a day by oral route. losartan 25 mg tablet Active ? Not availa ble Take 1 tablet every day by oral route. omeprazole 20 mg capsule,delayed release Active ? Not available Take 1 capsule every day by oral route. Problems Name Status Onset Date Source ? Hyperlipidemia Active 03/20/2021 ? Anemia Active 03/20/2021 ? 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 Hypertensive Disorder Active 03/20/2021 ? 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 Cerebrovascular Accident Active 03/20/2021 ? Gastroesophageal Reflux Disease Active 03/20/2021 ? Osteoarthritis Active 03/20/2021 ? Low Back Pain Active 03/20/2021 ? Sleep Apnea Active 03/20/2021 ? Memory Impairment Active 03/20/2021 ? Dysphasia Active 03/20/2021 ? Dyspnea on Exertion Active 03/20/2021 ? Renal Function Tests Abnormal Active 03/20/2021 ? Family History of Polyp of Colon Active 03/20/2021 ? History of Mechanical Mitral Valve Unknown 03/20/2021 ? Replacement History of Mitral Valve Replacement Unknown 03/23/2021 ? Replacement of Aortic Valve Active 03/23/2021 ? Procedures None recorded. Results Lab Results None recorded. Past Encounters 03/23/2021 Snoring; Periodic Limb Movement Disorder Emily Bowman MD, Board Certified Sleep Ph ysician: [address] [place] [address] [address], [place] [address], Ph. Social History Tobacco Smoking Status Former Smoker Notes: quit Vaccine List None recorded. Plan of Care Patient Instructions We discussed signs and symptoms you are exhibiting that may be due to Obstructive Sleep Apnea or other sleep disorders. We went over sleep conditions that I suspect you may have that will benefit from further evaluation. The next step is to diagnose your sleep disorder through sleep study testing. We will get permission from your insuran ce to do the sleep study. Call us back in 2 to 3 weeks if you do not get a call from us about scheduling your sleep study. Bring all your home medications to the sleep study. Please call [facility] if you ar e not able to make it to your sleep study Remember the sleep lab policy is No Smo carmen during Sleep Study. Reminders Provider Appointments None recorded. ? ? Lab None recorded. ? ? Referral None recorded. ? ? Procedures None recorded. ? ? Surgeries None recorded. ? ? Imaging None recorded. ? ? Vitals Height Weight BMI Blood Pressure 180.34 cm 107.5 kg 33.1 kg/m2 127/80 mm[Hg]
--- OUTSIDE RECORDS SUMMARY | 2021-03-30 16:04 | XMS_ITS | Encounter Summary ---
:1950 Author Care Team Providers Name Role Phone Nic Hutton MD Primary Care Provider [phone] [facility] Medical Records OTHER [phone] Reason for Visit SLEEP CLINIC New Adult Patient Assessment and Plan Assessment Note I provided greater than 60 minutes in th e care of this patient, more than half the time was spent in [id number] counseling. 1. 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 Comorbidities include CVA (2014), aortic valve replacement 2016, hypertension, hyperlipidemia, GERD We had a thorough discussion of Obstru ctive Sleep Apnea, including pathophysiology, associated rodent exterminator cardiovascular, neurocognitive, and overall health effects, and importance of treatment. Adhere to drowsy driving precautions a s applicable. Weight loss encouraged. Treatment options discussed. His broth er in law uses cpap and going well for him. We discussed his various questions on cpap including mask choices03/23/ Proceed with Diagnostic Polysomnogram. In-facility sleep study requested due to history of CVA ? learning about sleeping we ll ? sleep study, baseline diag nostic polysomnogram - Obtain supine and lateral position sleep for comparison. D ocument snoring intensity. Document medications taken on night of sleep stud y. 2. Periodic limb movement disord er 03/23/21: sxs consistent w/ plm d vs untreated mercedes. will mointor at PSG Discussion Note Remember to always take precautio ns on drowsy driving. If you experience sleepiness while driving, find a safe area to pullman conductor and take a break. Research suggests taking a power nap (15 to 20 gita viraj) and/or coffee (or caffeine containi ng food such as dark chocolate) may be effective aides. As always, you should use your judgement on whether to drive at all, if you are sleep deprived or feeling sleepy. Thank you for the kind opportunity to p articipate in your medical care. You expressed good understanding of your diagnosis and treatment, and agreed to proceed with the plan we discussed together. If y ou have any questions or concerns prior to your next appointment, please call Sleep Clinic. Plan of Care Patient Instructions We discussed [...] carmen during Sleep Study. Reminders Provider Appointments Procedure [address] [employer] 04/27/2021 8:00PM ? Office 30 Emily bloom MD, 05/25/2021 Board Certified Sleep 8:30AM Physician Lab None ? ? recorded. Referral None ? ? recorded. Procedures None ? ? recorded. Surgeries None ? ? recorded. Imaging None ? ? recorded. Medications Name Start Date ? ? acetaminophen 500 mg tablet ? Take 2 tablets every 4 hours by oral route. aspirin ? 81 mg chewable 1 a day atorvastatin 20 mg tablet ? Take 1 tablet every day by oral route. Calcium 500 ? 1 tab daily losartan 25 mg tablet ? Take 1 tablet every day by oral route. omeprazole 20 mg capsule,delayed release ? Take 1 capsule every day by oral route. Medications Administered None recorded. Vitals Height Weight BMI Blood Pressure 5 ft 11 in 237 lbs 33.1 kg/m2 127/80 mm[Hg] Results Lab Results None recorded. Allergies Code Code System Name Reaction Severity Onset 85675 RxNorm Gabapentin ? ? ? Sulfa (Sulfonamide ? ? ? Antibiotics) 02961 RxNorm Vancomycin ? ? ? Problems Name Status Onset Date Source ? [...] of Polyp of Colon Active 03/20/2021 ? Replacement of Aortic Valve Active 03/23/2021 ? Procedures None recorded. Vaccine List None recorded. Social History Tobacco Smoking Status Former Smoker Notes: quit 19 Alcohol intake Occasional Notes: 2 beers a week Live alone or with others? with others Are you currently employed? N Blind or serious difficulty seeing Y Not es: reading glasses Hard of hearing or deaf in one or N both ears? Caffeine intake Occasional Notes: 1c coffee a day Drug Use N Functional Status Blind or serious Yes difficulty seeing? Past Encounters 03/23/2021 Snoring; Periodic Limb Movement Disorder Emily Bowman MD, Board Certified Sleep Ph ysician: [address] [place] [address] [address], [place] [address], Ph. History of Present Illness Note: <p><strong>Sleep Medicine New Patient Consult</strong>

Scout Donohue is a pleasant {{70# ____}} year old {{female male*}} , retired process manufacturing engineer/beauty culture teacher, now volunteer at [employer], who presents for sleep consultation at kind request of Dr Gianfranco Hutton regarding snoring.

Past medical history includes CVA (2014), aortic valve replacement 2016, hypertension, hyperlipidemia, GERD

<strong>PREVIOUS SLEEP EVALUATION: </strong>{{None # Reviewed in detail and summarized as follows: Records not available, requested. Records not available. None. }}

<strong>CHIEF COMPLAINT/HISTORY OF PRESENT ILLNESS: </strong>
Patients reports biggest problem with sleep is snoring and witnessed apneas.
witnessed by ex
</p><p>also aortic valve replacement 2016, told he has bad case of sleep apnea
</p><p>
<strong> SLEEP SCHEDULE:</strong> Bedtime {{10 # }} {{pm# am}}, Sleep onset latency {{less than 30* 30 to 60 greater than 60 variable}} minutes, Awakenings {{two# 0-2 variable}} times per night, Ableto fall back asleep within {{few minutes # up to 30 minutes up to few hours variable}}, Wake time {{6 :30# }} {{am# pm}}. Naps {{Rare Occasionally* Nearly Everyday Everyday}} 3 /4 times per week for 30 min

<strong>SLEEP ENVIRONMENT:</strong> {{Pets wake patient up. Children wake patient up. Noise from outside room wake patient up. Light wakes patient up. No environmental disruptions identified. *}}

<strong>SLEEP QUALITY:</strong> {{Fair Very good Adequate* Very poor}}

<strong>DAYTIME/NEUROCOGNITIVE FUN CTION:</strong> {{Low energy# Sleepy Alert}}. {{Problems with memory, concentration and irritable/depressed mood# Problems with memory Problems with memory, concentration and mood No problems with memory, concentration, mood}}.

<strong>SLEEP RELATED THOUGHTS/BEHAVIORS:&lt ;/strong> {{Deny insomnia related thought patterns or behaviors. # Deny insomnia related thought patterns or behaviors, except [place] active mind. Stressful thoughts interfering with sleep. Tendency to clock watch. Worry about getting good night sleep. }}. {{.# [place] active mind. Stressful thoughts interfering with sleep. Tendency to clock watch. Worry about getting good night sleep.}} {{.# Stressful thoughts interfering with sleep. Tendency to clock watch. Worry about getting good night sleep. }} {{.# Tendency to clock watch. Worry about getting good night sleep. }} {{.# Worry about getting good night sleep. }}

<strong>SLEEP BREATHING:</strong> {{Loud Snoring.# Snoring. Witnessed apneas.}} {{Witnessed apneas.* Waking up gasping for air.}} {{.# Witnessed apneas. Waking up gasping for air.}} {{Mouth breathing.* Chronic nasal congestion.}} {{Chronic nasal congestion.*}}

<strong>LEG SYMPTOMS:</strong> {{ Legs move before sleep and/or during sleep.*}} {{.# Leg movements are worse in evenings.}} {{.# Relieved by movement.}}{{.# Relieved by counterpressure.}} {{.# Leg cramps especially in evening.}} {{Toss and turn at night.* Sheets are messy after sleep.}} {{Sheets are messy after sleep.*}}

<strong>MOVEMENT SYMPTOMS</strong>{{No sleepwalking # Sleeptalk. Sleepwalk: }}.<br&gt ;
<strong>DREAM SYMPTOMS:</strong> {{Deny dream enacting behavior # Dream enactment behavior: }}. {{Deny hypnogogic or hypnopompic hallucinations # See dreams in room when wakingup or falling asleep: }}. {{No disturbing dreams # Disturbing nightmares Recurring nightmares}}.< br>
<strong>WEAKNESS SYMPTOMS:</strong> {{Deny cataplexy related symptoms # Muscles suddenly become weak triggered by emotion Muscles may feel weak but no emotional triggers known}} {{Deny sleep paralysis # Experienced inability to move upon waking up in remote past Experiences inability to move upon waking up on regular basis}}.

<strong>DRIVING:</strong> {{Deny drowsy driving # Experienced drowsy driving in past related to sleep deprivatio n Intermittent drowsy driving episodes Regular drowsy driving episodes}}. {{.# Follows drowsy driving precautions. Aware of drowsy driving precautions and plans to follow them.}}

<strong>OTHER PERTINENT SYMPTOMS: </strong>
dry mouth
</p><p>s obe
</p><p>freq urination
</p><p>
<strong>PRODUCT/SUBSTANCE USE:</strong>{{No smoking, quit in remote past, 1985# No smoking No smoking, quit in remote past No smoking quit recently Current Smoker}}. {{1 cup coffee/day# Contemplating quitting Ready to quit Not interested in quitting}}. {{0 to 2 alcohol drinks daily (2 per week)# No alcohol use 1-2 alcohol drinks daily 3+ alcohol drinks daily Variable alcohol use}}. {{No regular illicit drug use# Recreational MJ use Medical MJ use Rare MJ use Cocaine Heroin/Non- prescribed Opiate}}.

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

</p> Review of Systems ? Notes: A 14-point <strong>REVIEW OF SYSTEM</strong> was obtained and reviewed, includes CONSTITUTIONAL, EYE S, ALLERGY, NEUROLOGIC, ENDOCRINE, GI, CARDIOVASCULAR, SKIN, MSK, E NT, , RESPIRATORY, HEMATOLOGIC, PSYCH systems. Pertinent symptoms are discu ssed in history, otherwise negative. Physical Exam ? Notes: <p>GENERAL: {{well appearing # chronically ill appearing}}, appearing {{stated# older than younger than}} age, no acute distress, {{obese# normal tall lean}} build
HEENT: atraumatic skull, moist mucous membranes, Mallampati 4, mac roglossia
PSYCHIATRIC: well groomed, fluent speech, good insight, linear thought process, good eye contact, {{balanced# flat}} affect
NEUROLOGIC: alert, oriented, symmetric facial expression

<stron g>Clinical Data Reviewed:</strong>

1. {{Modified Pediatric Saint Bernard Sleepiness Scale Saint Bernard Sleepiness Scale*}}: _9_ out of {{24# 21 due to not d riving}}.

2. [place]ish Questionnaire positive for {{3# 0 1 2}} out of 3 Ca tegories.

3. {{No sleep study reports# Sleep study results as above. Sleep study results not available, requested Unable to obtain s leep study reports}}

4. {{No pertinent labs available. # Lab results as outlined. Labs pending.}}

5. {{Sleep log reviewed, consistent with hi story.* Sleep log reviewed. }}</p>
--- NOTE | 2021-03-30 16:28 | DI.VRAD_ITS ---
PROCEDURE INFORMATION: Exam: US Duplex Right Lower Extremity Veins, Limited Exam date and time: 03/30/2021 3:52 PM Age: 70 years old Clinical indication: Other: Right leg swelling, positive d-dimer TECHNIQUE: Imaging protocol: Real-time Duplex ultrasound of the Right Lower Extremity with 2-D claros scale, color Doppler flow and spectral waveform analysis with image documentation. Limited exam was focused on the right lower extremity veins. COMPARISON: No relevant prior studies available. FINDINGS: Right deep veins: Unremarkable. The common femoral, femoral, proximal profunda femoral and popliteal veins are patent without thrombus. Normal Doppler waveforms. Normal compressibility and/or augmentation response. Right superficial veins: Unremarkable. Saphenofemoral junction is patent without thrombus. Soft tissues: Mild soft tissue edematous changes. IMPRESSION: 1. No evidence of deep vein thrombosis. 2. Mild soft tissue edematous changes. Dictated and Authenticated by: Van Molina MD. Ordering:OMAR Lucero MD
== END 2021-03-30 16:19 ==
PROVIDERS: PCP Internal Medicine; Visit Provider Internal Medicine
DX: R22.41 Localized swelling, mass and lump, right lower limb (principal); R79.1 Abnormal coagulation profile
CPT/HCPCS: 93971

== ENCOUNTER 2022-01-13 09:11 | Outpatient (REF) | payer MEDICARE, BC, SELFPAY | END 2022-01-13 09:12 | disposition home or self-care (01) | LOC: NCHCN 09:11 | PROVIDERS: PCP Internal Medicine; Visit Provider Family Medicine ==

== ENCOUNTER 2022-01-22 02:23 | Outpatient (CLI) | payer MEDICARE, BC, SELFPAY ==
[2022-01-22 09:12] LABS: HCT 40.1 % (40.0-50.0); HGB 12.3 g/dL (13.5-17.5); MCH 24.3 pg (27.0-33.0); MCHC 30.7 % (32.0-36.0); MCV 79.1 fL (80-95); Platelet Count 233 10^3/uL (130-400); RBC 5.07 10^6/uL (4.36-5.78); RDW 19.6 % (11.8-14.1); RDW-SD 55.5 fL; WBC 4.88 10^3/uL (4.4-10.8)
[2022-01-22 09:56] LABS: ALT 27 U/L (16-63); AST 16 U/L (15-37); Albumin 3.7 g/dL (3.4-5.0); Alkaline Phosphatase 68 U/L (46-116); Anion Gap 6.3 mmol/L (3-11); BUN 18 mg/dL (7-18); Bilirubin, Total 0.6 mg/dL (0.2-1.0); CO2 30.7 mmol/L (21.0-32.0); CREATININE 1.3 mg/dL (0.70-1.30); Calcium 9.2 mg/dL (8.5-10.1); Calculated LDL 160 mg/dL (<100); Chloride 103 mmol/L (98-107); Cholesterol 226 mg/dL (<200); Estimated GFR 54.57 (mL/min/1.73m2); Glucose 118 mg/dL (74-106); HDL Cholesterol 46 mg/dL (40-60); Potassium 4.5 mmol/L (3.5-5.1); Sodium 140 mmol/L (136-145); Total Protein 6.9 g/dL (6.4-8.2); Triglyceride 101 mg/dL (<150)
[2022-01-23 10:05] LABS: HIV-1/2 Ag & Ab Screen Negative (Negative)
[2022-01-25 10:39] LABS: Hepatitis C Ab w Rflx HCV PCR Negative (Negative)
== END 2022-01-22 02:24 | disposition home or self-care (01) ==
LOC: LBO 02:23
PROVIDERS: PCP Internal Medicine; Visit Provider Family Medicine
DX: I10 Essential (primary) hypertension (principal); E78.5 Hyperlipidemia, unspecified; Z11.4 Encounter for screening for human immunodeficiency virus [HIV]; Z11.59 Encounter for screening for other viral diseases
CPT/HCPCS: 36415; 80053; 80061; 85027; 86803; 87389; 83735

== ENCOUNTER 2022-02-15 18:09 | Outpatient (REF) | payer MEDICARE, BC, SELFPAY ==
[2022-02-15 16:51] LABS: ALT 27 U/L (16-63); AST 18 U/L (15-37)
== END 2022-02-15 18:10 | disposition home or self-care (01) ==
LOC: NCHCN 18:09
PROVIDERS: PCP Internal Medicine; Visit Provider Family Medicine
DX: I10 Essential (primary) hypertension (principal); E78.5 Hyperlipidemia, unspecified; D50.9 Iron deficiency anemia, unspecified
CPT/HCPCS: 84450; 84460

== ENCOUNTER → 2022-05-18 21:56 | Outpatient (CLI) | payer MEDICARE, BC, SELFPAY ==
--- NOTE | 2022-05-18 | DI.US_ITS ---
Exam(s) US LOWER EXTREMITY VENOUS RT EXAM: US LOWER EXTREMITY VENOUS RT CLINICAL HISTORY: LOCALIZED SWELLING RT LEG, R22.41. TECHNIQUE: Lower extremity venous ultrasound performed using grayscale, color-flow, and spectral Do ppler analysis. COMPARISON: No exams were available for comparison FINDINGS: The common femoral, femoral and popliteal veins demonstrate normal compressibility, augmentation, and color Doppler. The posterior tibial veins are patent. No saphenous vein thrombosis or other superfi cial venous thrombosis is seen. No hematoma or Castro's cyst is seen. IMPRESSION: Negative lower extremity ultrasound. No evidence of DVT. DATA REPOSITORY:
== END ==
PROVIDERS: PCP Internal Medicine; Visit Provider Family Medicine
DX: R22.41 Localized swelling, mass and lump, right lower limb (principal)
CPT/HCPCS: 93971

== ENCOUNTER 2022-07-14 15:22 | Outpatient (REF) | payer MEDICARE, BC, SELFPAY ==
[2022-07-14 19:51] LABS: Abs Immature Grans 0.01 10^3/uL (0.0-0.06); Absolute Eosinophil Count 0.26 10^3/uL (0.0-0.7); Absolute Lymphocyte Count 1.57 10^3/uL (1.2-3.4); Absolute Monocyte Count 0.82 10^3/uL (0.1-0.8); Absolute Neutrophil Count 3.23 10^3/uL (1.2-6.7); Basophils % 1.7; Eosinophils % 4.3; HCT 38.7 % (40.0-50.0); HGB 12.2 g/dL (13.5-17.5); Immature Grans % 0.2; Lymphocytes % 26.2; MCH 25.1 pg (27.0-33.0); MCHC 31.5 % (32.0-36.0); MCV 80 fL (80-95); MPV 11.2 fL (8.0-11.0); Monocytes % 13.7; Neutrophils % 53.9; Platelet Count 226 10^3/uL (130-400); RBC 4.86 10^6/uL (4.36-5.78); RDW 17.6 % (11.8-14.1); RDW-SD 50.5 fL; WBC 5.99 10^3/uL (4.4-10.8)
[2022-07-14 20:14] LABS: ALT 22 U/L (16-63); AST 19 U/L (15-37); Albumin 3.8 g/dL (3.4-5.0); Alkaline Phosphatase 75 U/L (46-116); Anion Gap 3.7 mmol/L (3-11); BUN 20 mg/dL (7-18); Bilirubin, Total 0.3 mg/dL (0.2-1.0); CO2 31.3 mmol/L (21.0-32.0); CREATININE 1.2 mg/dL (0.70-1.30); Calcium 9.4 mg/dL (8.5-10.1); Chloride 104 mmol/L (98-107); Estimated GFR 64.65 (mL/min/1.73m2); Glucose 83 mg/dL (74-106); NT-proBNP 134 pg/mL (<300); Potassium 4.3 mmol/L (3.5-5.1); Sodium 139 mmol/L (136-145); TSH (W/Ref FT4) 3.56 uIU/mL (0.36-3.74); Total Protein 7.4 g/dL (6.4-8.2)
== END 2022-07-14 15:23 | disposition home or self-care (01) ==
LOC: NCHCN 15:22
PROVIDERS: PCP Internal Medicine; Visit Provider Family Medicine
DX: G47.33 Obstructive sleep apnea (adult) (pediatric) (principal); D50.9 Iron deficiency anemia, unspecified; R06.09 Other forms of dyspnea; I10 Essential (primary) hypertension; Z95.2 Presence of prosthetic heart valve
CPT/HCPCS: 80053; 83880; 84443; 85025

== ENCOUNTER → 2022-08-12 02:15 | Outpatient (CLI) | payer MEDICARE, BC, SELFPAY ==
--- NOTE | 2022-08-12 07:30 | DI.US_ITS ---
APPROVED REPORT EXAM: Comprehensive 2D, Doppler, and color-flow Echocardiogram Patient Location: Out-Patient [employer] Baster: Lucrecia Tavears RDCS (AE) Indications: BOWEN, bioprosthetic aortic valve Other Information Study Quality: Adequate Conclusion Moderate concentric left ventricular hypertrophy. Estimated ejection fraction is 60%. Wall motion i s normal Right ventricle was not well visualized Both atria are normal in size There is a bioprosthetic aortic valve. Mean gradient is 9 mmHg. There is no aortic regurgitation Normal mitral valve with mild regurgitation Normal tricuspid valve with trace to mild regurgitation. Right ventricular systolic pressure could n ot be estimated Dilated ascending aorta measuring 4.28 cm Wall motion Left Ventricle The left ventricle is normal size. The left ventricular systolic function is normal. The left ventric ular ejection fraction is within the normal range. Moderate concentric left ventricular hypertrophy. There is normal LV segmental wall motion. There is no ventricular septal defect visualized. LVEF is 6 0%. Right Ventricle Right ventricle is not well visualized. Right ventricular systolic function could not be assessed. Atria The left atrium size is normal. The right atrium size is normal. The interatrial septum is intact wit h no evidence for an atrial septal defect. Aortic Valve Bioprosthetic aortic valve is present. Mitral Valve The mitral valve is normal in structure. No evidence of mitral valve stenosis. Mild mitral regurgitat ion. Tricuspid Valve The tricuspid valve is normal in structure. There is no tricuspid valve stenosis. Trace to mild tricu spid regurgitation. Unable to assess PA pressure. Pulmonic Valve The pulmonary valve is normal in structure. There is no pulmonic valvular stenosis. There is no pulmo mabel valvular regurgitation. Great Vessels The aortic root is normal in size. The ascending aorta is dilated. Aortic arch is normal in caliber. IVC is normal in size and collapses >50% with inspiration. Pericardium There is no pericardial effusion. 2D Dimensions IVSD d PLAX 1.44 cm M: 0.6-1.2 LV Vol A2C d MOD 120.0 mL LVPW d PLAX 1.42 cm M: 0.6 - 1.2 LV Vol A4C d MOD 157.9 mL LVID d PLAX 4.53 cm M: 4.2 - 5.8 LA vol/ BSA A2C s A-L 16.5 mL/m2 LVDs 2.95 cm M: 2.5 - 4.0 LA vol/ BSA A4C s A-L 29.2 mL/m2 Ao Root d 3.39 cm M: 3.1 - 3.7 LA Vol/ BSA Biplane s A-L 23.2 mL/m2 RA Area A4C 15.01 cm2 LA Area A4C s MOD 20.69 cm2 RA Vol/ BSA A4C s A-L 18.3 mL/m2 LA Area A2C s MOD 14.68 cm2 Ao Asc Diam d 4.28 cm M: 2.6 - 3.4 LV EF A4C MOD 60.8 % LV EF Teichholz 63.6 % LV EF A2C MOD 60.0 % LVEF (Saravia's) 60.98 % M: 52 - 72 LV EF Biplane MOD 61.0 % LV Volume 101.72 mL M: 62 - 150 SV 86.01 mL LV Volume Index 45.00 mL/m2 M: 34 - 74 SV Index 38.04 mL/m2 LV Vol Biplane MOD 141.1 mL FS 34.35 % M-Mode TAPSE 2.20 cm (M/F) >1.7 LV Diastology MV E' medial 0.083 (>0.07 m/s) E/A Ratio 0.8 LV E/e MED 8.15 (<14) MV E Vmax 0.68 (0.4-1.3 m/s) MV E' lateral 0.100 (>0.1 m/s) MV A Vmax 0.85 (0.4-1.3 m/s) LV E/e LAT 6.75 (<14) MV E/A Ratio 0.80 MV E/E' medial 8.20 MV E/E' lateral 6.80 Aortic Valve LVOT Area 3.06 cm2 AoV Area Vmax 2.00 cm2 LVOT Vmax 1.40 m/s AoV Area/ BSA (Vmax) 0.89 cm2/m2 LVOT Mean Dom. 1.02 m/s NIC Mean Dom. 2.18 cm2 LVOT Peak Grad 7.8 mmHg NIC Mean Dom. Index 0.97 cm2/m2 LVOT Mean Grad 4.7 mmHg LVOT VTI 0.346 m LVOT Diam s 1.95 cm AoV Vmax 2.13 m/s Velocity Ratio 0.65 AoV Mean Dom. 1.43 m/s AoV Peak Grad 18.2 mmHg LVOT SV 105.74 mL AoV Mean Grad 9.3 mmHg AoV VTI 0.419 m AoV Area VTI 2.52 cm2 AoV Area/ BSA (VTI) 1.12 cm/m2 Mitral Valve MV DT 203 (160-240 msec) MV PHT 59 msec MV Area PHT 3.74 cm2 MV VTI 0.322 m MV Area VTI 3.29 (4.0-6.0 cm2) Pulmonary Valve PV Vmax 0.87 (0.5-1.5 m/s) RVOT Peak Gr. 0.30 mmHg PV Peak Grad 3.0 mmHg RVOT Mean Gr. 0.20 mmHg PV Mean Grad 1.4 mmHg RVOT VTI 0.073 m PV VTI 0.160 m RVOT Vmax 0.28 m/s
== END ==
PROVIDERS: PCP Internal Medicine; Visit Provider Family Medicine
DX: R06.09 Other forms of dyspnea (principal)
CPT/HCPCS: 93306

== ENCOUNTER 2023-01-26 11:51 | Outpatient (REF) | payer MEDICARE, BC, SELFPAY ==
[2023-01-26 15:51] LABS: Absolute Basophil Count 0.08 10^3/uL (0.0-0.2); Absolute Eosinophil Count 0.19 10^3/uL (0.0-0.7); Absolute Lymphocyte Count 1.45 10^3/uL (1.2-3.4); Absolute Neutrophil Count 2.66 10^3/uL (1.2-6.7); Basophils % 1.6; Eosinophils % 3.8; HCT 41.5 % (40.0-50.0); HGB 13.2 g/dL (13.5-17.5); Lymphocytes % 29.1; MCH 25.8 pg (27.0-33.0); MCHC 31.8 % (32.0-36.0); MCV 81 fL (80-95); MPV 10.3 fL (8.0-11.0); Neutrophils % 53.5; Platelet Count 241 10^3/uL (130-400); RBC 5.11 10^6/uL (4.36-5.78); RDW 18.8 % (11.8-14.1); RDW-SD 55.8 fL; WBC 4.98 10^3/uL (4.4-10.8)
[2023-01-26 16:13] LABS: ALT 31 U/L (16-63); AST 18 U/L (15-37); Albumin 3.9 g/dL (3.4-5.0); Alkaline Phosphatase 71 U/L (46-116); Anion Gap 4.2 mmol/L (3-11); BUN 21 mg/dL (7-18); Bilirubin, Total 0.4 mg/dL (0.2-1.0); CO2 30.8 mmol/L (21.0-32.0); CREATININE 1.2 mg/dL (0.70-1.30); Calcium 9.3 mg/dL (8.5-10.1); Calculated LDL 106 mg/dL (<100); Chloride 105 mmol/L (98-107); Cholesterol 174 mg/dL (<200); Estimated GFR 64.65 (mL/min/1.73m2); Ferritin 17 ng/mL (26-388); Glucose 108 mg/dL (74-106); HDL Cholesterol 49 mg/dL (40-60); Potassium 4.3 mmol/L (3.5-5.1); Sodium 140 mmol/L (136-145); Total Protein 7.3 g/dL (6.4-8.2); Triglyceride 95 mg/dL (<150)
== END 2023-01-26 11:52 | disposition home or self-care (01) ==
LOC: NCHCN 11:51
PROVIDERS: PCP Family Medicine; Visit Provider Family Medicine
DX: I10 Essential (primary) hypertension (principal); G47.61 Periodic limb movement disorder; D50.9 Iron deficiency anemia, unspecified; Z95.2 Presence of prosthetic heart valve
CPT/HCPCS: 80053; 80061; 82728; 85025

== ENCOUNTER 2024-02-08 16:01 | Outpatient (REF) | payer MEDICARE, BC, SELFPAY ==
[2024-02-08 15:13] LABS: Abs Immature Grans 0.02 10^3/uL (0.0-0.06); Absolute Basophil Count 0.08 10^3/uL (0.0-0.2); Absolute Eosinophil Count 0.28 10^3/uL (0.0-0.7); Absolute Lymphocyte Count 1.46 10^3/uL (1.2-3.4); Absolute Monocyte Count 0.66 10^3/uL (0.1-0.8); Absolute Neutrophil Count 2.88 10^3/uL (1.2-6.7); Basophils % 1.5 %; Eosinophils % 5.2 %; HCT 50.3 % (40.0-50.0); HGB 17.2 g/dL (13.5-17.5); Immature Grans % 0.4 %; Lymphocytes % 27.1 %; MCH 31.4 pg (27.0-33.0); MCHC 34.2 % (32.0-36.0); MCV 92 fL (80-95); MPV 10.8 fL (8.0-11.0); Monocytes % 12.3 %; Neutrophils % 53.5 %; Platelet Count 189 10^3/uL (130-400); RBC 5.47 10^6/uL (4.36-5.78); RDW 14.1 % (11.8-14.1); RDW-SD 48.1 fL; WBC 5.38 10^3/uL (4.4-10.8)
[2024-02-08 15:57] LABS: ALT 31 U/L (16-63); AST 16 U/L (15-37); Alkaline Phosphatase 79 U/L (46-116); Anion Gap 9.6 mmol/L (3-11); BUN 11 mg/dL (7-18); Bilirubin, Total 0.8 mg/dL (0.2-1.0); CO2 29.4 mmol/L (21.0-32.0); CREATININE 1.2 mg/dL (0.70-1.30); Calcium 9.6 mg/dL (8.5-10.1); Chloride 102 mmol/L (98-107); Estimated GFR 64.25 (mL/min/1.73m2); Glucose 100 mg/dL (74-106); LDL CHOLESTEROL 113 mg/dL (<100); Potassium 4.4 mmol/L (3.5-5.1); Sodium 141 mmol/L (136-145); TSH (W/Ref FT4) 3.47 uIU/mL (0.36-3.74)
[2024-02-08 16:27] LABS: Hemoglobin A1C 5.5 % (<5.7)
== END 2024-02-08 16:02 | disposition home or self-care (01) ==
LOC: NCHCN 16:01
PROVIDERS: PCP Family Medicine; Visit Provider Family Medicine
DX: I10 Essential (primary) hypertension (principal); E78.5 Hyperlipidemia, unspecified; R73.03 Prediabetes; R41.3 Other amnesia
CPT/HCPCS: 80053; 83721; 83036; 84443; 85025

== ENCOUNTER 2024-08-13 18:11 | Outpatient (REF) | payer MEDICARE, BC, SELFPAY ==
[2024-08-13 16:27] LABS: HCT 47.5 % (40.0-50.0); HGB 16.4 g/dL (13.5-17.5); MCH 32.7 pg (27.0-33.0); MCHC 34.5 % (32.0-36.0); MCV 95 fL (80-95); MPV 10.6 fL (8.0-11.0); Platelet Count 197 10^3/uL (130-400); RBC 5.02 10^6/uL (4.36-5.78); RDW 13.5 % (11.8-14.1); RDW-SD 46.5 fL; WBC 4.56 10^3/uL (4.4-10.8)
[2024-08-13 16:41] LABS: Hemoglobin A1C 5.2 % (<5.7)
[2024-08-13 16:49] LABS: Ferritin 55 ng/mL (26-388)
== END 2024-08-13 18:12 | disposition home or self-care (01) ==
LOC: NCHCN 18:11
PROVIDERS: PCP Family Medicine; Visit Provider Family Medicine
DX: R73.03 Prediabetes (principal); D50.9 Iron deficiency anemia, unspecified
CPT/HCPCS: 85027; 82728; 83036

== ENCOUNTER 2025-05-08 03:00 | Outpatient (CLI) | payer MEDICARE, BC, SELFPAY ==
--- NOTE | 2025-05-08 08:30 | DI.US_ITS ---
APPROVED REPORT EXAM: Comprehensive 2D, Doppler, and color-flow Echocardiogram Patient Location: Out-Patient [facility] Manager: James Manzano RDCS (AE) Indications: Prosthetic aortic valve Other Information Study Quality: Fair Conclusion Normal left ventricular wall thickness and chamber size. Ejection fraction is 55 to 60%. Wall motion is normal Normal right ventricular size and function Both atria are normal in size There is an aortic bioprosthetic valve with a mean gradient of 13 mmHg. There is no aortic regurgitation There is no additional significant valvular disease Ascending aorta measures 4.04 cm Wall motion Left Ventricle The left ventricle is normal size. The left ventricular systolic function is normal. The left ventricular ejection fraction is within the normal range. There is normal left ventricular wall thickness. There is normal LV segmental wall motion. There is no ventricular septal defect visualized. LVEF is 60%. Right Ventricle The right ventricle is normal size. The right ventricular systolic function is normal. Atria Left atrium is mildly dilated. The right atrium size is normal. The interatrial septum is intact with no evidence for an atrial septal defect. Aortic Valve Prosthetic aortic valve is present. No aortic regurgitation is present. Mitral Valve The mitral valve is normal in structure. No evidence of mitral valve stenosis. Trace to mild mitral regurgitation. Tricuspid Valve The tricuspid valve is normal in structure. There is no tricuspid valve stenosis. Trace tricuspid regurgitation. Pulmonic Valve The pulmonary valve is normal in structure. There is no pulmonic valvular stenosis. Trace pulmonic regurgitation. Great Vessels The aortic root is normal in size. The ascending aorta is moderately dilated. IVC is normal in size and collapses >50% with inspiration. Pericardium There is no pericardial effusion. 2D Dimensions IVSD d PLAX 1.68 cm M: 0.6-1.2 Ao Asc Diam d 4.04 cm M: 2.6 - 3.4 LVPW d PLAX 1.05 cm M: 0.6 - 1.2 LVID d PLAX 4.40 cm M: 4.2 - 5.8 LVDs 3.01 cm M: 2.5 - 4.0 LV EF Teichholz 59.9 % FS 31.66 % LV EDV (Teich) 87.7 mL LV ESV (Teich) 35.2 mL Stroke Vol Index (Teich) 24.42 M-Mode TAPSE 1.38 cm (M/F) >1.7 Auto EF LV EDV A4C 133.0 mL LV EDV A2C 136.2 mL LV EDV BP 138.1 mL LV ESV A4C 54.6 mL LV ESV A2C 54.1 mL LV ESV BP 54.9 mL LVEF(%) A4C 58.9 % LVEF(%) A2C 60.3 % LVEF(%) BP 60.3 % LV SV A4C 78.3 ml LV SV A2C 82.1 ml LV SV BP 83.3 ml LV CO A4C 4.8 L/min LV CO A2C 4.9 L/min LV CO BP 4.9 L/min HR A4C 60.81 BPM HR A2C 60.18 BPM LV EDV Index (BP) LA Volume LA Length A4C 4.7 cm LA Length A2C 5.2 cm LA Area A4C s 14.48 cm2 LA Area A2C s 16.98 cm2 LA Vol A4C A-L 37.54 mL LA Vol A2C A-L 46.73 mL LA Vol Biplane A-L 44.0 mL LA Vol/BSA A4C A-L LA Vol/BSA A2C A-L LA Vol/BSA BP A-L 20.5 mL/m2 LA Vol A4C MOD 35.2 mL LA Vol A2C MOD 45.3 mL LA Vol BP MOD 41.8 mL RA Volume RA Area A4C 7.5 cm2 RA ESV A4C (A-L) 10.2mL RA Vol/BSA A4C A-L RA Length A4C 4.7 cm RA ESV A4C (MOD) 9.7mL LV Diastology MV E' medial 0.073 (>0.07 m/s) MV E Vmax 0.72 (0.4-1.3 m/s) MV E/E' MED 9.86 (<14) MV A Vmax 0.90 (0.4-1.3 m/s) MV E' lateral 0.087 (>0.1 m/s) E/A Ratio 0.8 MV E/E' LAT 8.29 (<14) MV E' Average 0.080 m/s MV E/E'(average) 9.01 Aortic Valve AoV Vmax 2.60 m/s LVOT Vmax 1.07 m/s AoV Peak Grad 27.1 mmHg LVOT Peak Grad 4.6 mmHg AoV VTI 0.450 m LVOT VTI 0.224 m AoV Mean Dom. 1.68 m/s LVOT Mean Grad 2.4 mmHg AoV Mean Grad 13.3 mmHg AV Regurg Peak Gr. 27.08 mmHg Velocity Ratio 0.41 Mitral Valve MV DT 357 (160-240 msec) Pulmonary Valve PV Vmax 0.59 (0.5-1.5 m/s) RVOT Vmax 0.41 m/s PV Peak Grad 1.4 mmHg RVOT Peak Gr. 0.7 mmHg PV Mean Dom 0.36 m/s RVOT VTI 0.074 m PV Mean Grad 0.6 mmHg RVOT Mean Gr. 0.3 mmHg
== END 2025-05-08 03:20 ==
PROVIDERS: PCP Family Medicine; Visit Provider Internal Medicine Cardiovascular Disease
DX: Z95.2 Presence of prosthetic heart valve (principal)
CPT/HCPCS: 93306

== ENCOUNTER 2025-08-26 10:50 | Outpatient (REF) | payer MEDICARE, BC, SELFPAY ==
[2025-08-26 15:00] LABS: ALT 18 U/L (10-49); AST 20 U/L (<34); Albumin 4.2 g/dL (3.4-5.0); Alkaline Phosphatase 73 U/L (46-116); Anion Gap 6.1 mmol/L (3-11); BUN 17 mg/dL (9-23); Bilirubin, Total 0.80 mg/dL (0.2-1.2); CO2 29.9 mmol/L (20.0-31.0); Calcium 9.5 mg/dL (8.3-10.6); Chloride 108 mmol/L (98-107); Cholesterol 161 mg/dL (<200); Glucose 98 mg/dL (74-106); HDL Cholesterol 52 mg/dL (>40); Potassium 4.7 mmol/L (3.5-5.1); Sodium 144 mmol/L (136-145); Total Protein 6.8 g/dL (5.7-8.2)
== END 2025-08-26 10:51 | disposition home or self-care (01) ==
LOC: NCHCN 10:50
PROVIDERS: PCP Family Medicine; Visit Provider Family Medicine
DX: E78.5 Hyperlipidemia, unspecified (principal); I10 Essential (primary) hypertension
CPT/HCPCS: 80053; 80061